=== PATIENT | male | born 1955 | race Caucasian/White ===

== ENCOUNTER → 2024-08-09 13:17 | Outpatient (REF) | payer MEDICARE, SELFPAY | LOC: HWRAD 13:17 | PROVIDERS: ATTENDING PHYSICIAN Internal Medicine; FAMILY PHYSICIAN Nurse Practitioner Family | DX: M81.0 Age-related osteoporosis without current pathological fracture (principal); A15.9 Respiratory tuberculosis unspecified; Z79.52 Long term (current) use of systemic steroids | CPT/HCPCS: 71046; 77080 ==